=== PATIENT | female | born 1990 | race Caucasian/White ===

== ENCOUNTER 2017-02-28 17:36 | Inpatient (IN) | payer MEDICAID ==
[~2017-02-28] VITALS: Ht 157.5 cm; Wt 65.4 kg
[2017-02-28 17:48] VITALS: Ht 157.5 cm; Wt 65.4 kg
[2017-02-28 17:49] VITALS: BP 158/89; PULSE 88; RESP 18
[2017-02-28] MEDS ORDERED: FER325 PO (18:00)
[2017-02-28] MEDS ORDERED: FOLI0.4T2 PO (18:00)
[2017-02-28] MEDS ORDERED: PRENAT PO (18:00)
[2017-02-28 18:04] LABS: ADD SCAN DIFF NO
[2017-02-28 18:07] LABS: ABNORMAL IP MESSAGE 1; BASOPHILS % 0.2 % (0.0-2.0); EOSINOPHILS % 0.3 % (0.0-7.0); HEMOGLOBIN 12.5 g/dl (12.0-16.0); LYMPHOCYTES # 3.3 10^3/ul (0.8-2.9); LYMPHOCYTES % 30.6 % (15.0-51.0); MEAN CORPUSCULAR HEMOGLOBIN 24.3 pg (29.0-33.0); MEAN CORPUSCULAR HGB CONC 32.1 g/dl (32.0-37.0); MEAN CORPUSCULAR VOLUME 75.9 fl (82.0-101.0); MONOCYTE # 0.8 10^3/ul (0.3-0.9); MONOCYTES % 7.3 % (0.0-11.0); NEUTROPHIL # 6.5 10^3/ul (1.6-7.5); NEUTROPHILS % 61.2 % (39.0-77.0); NUCLEATED RED BLOOD CELLS% 0.3 /100WBC (0.0-0.0); PLATELET COUNT 142 10^3/UL (140-415); RED BLOOD COUNT 5.14 10^6/ul (4.20-5.40); RED CELL DISTRIBUTION WIDTH 13.8 % (11.5-14.5); WHITE BLOOD COUNT 10.7 10^3/ul (4.8-10.8)
[2017-02-28 18:09] LABS: ADD UMIC YES; UR BILIRUBIN (Dip) NEGATIVE (NEGATIVE); UR BLOOD (Dip) TRACE (NEGATIVE); UR CLARITY CLEAR (CLEAR); UR COLOR LT. YELLOW (YELLOW); UR GLUCOSE (Dip) NEGATIVE (NEGATIVE); UR KETONES (Dip) NEGATIVE (NEGATIVE); UR LEUKOCYTE ESTERASE (Dip) NEGATIVE (NEGATIVE); UR NITRITE (Dip) NEGATIVE (NEGATIVE); UR TOTAL PROTEIN (Dip) 1+ (NEGATIVE); UR UROBILINOGEN (Dip) 0.2 E.U./dL (0.1-1.0)
[2017-02-28 18:23] LABS: UR SQUAMOUS EPITHELIAL CELL FEW; URINE RBCS 0-2 /HPF (0)
--- NOTE | 2017-02-28 18:25 | RADRPT ---
PROCEDURE: Obstetrical ultrasound CLINICAL INDICATION: HIGH BLOOD PRESSURE TECHNIQUE: Multiple sonographic images of the pelvis were obtained. The images were reviewed on a PACS workstation. COMPARISON: None FINDINGS: The cervix is not well visualized. There is a single viable intrauterine gestation. Cardiac activity is present with 139 beats per minute. There is a vertex presentation. The placenta is anterior. There is no evidence for an abruption or placenta previa. Multiple venous lakes are identified. There is a normal amount of amniotic fluid with an ANIYAH = 9.4 cm. Measurements were made in order to determine age. The results are as follows (cm): BPD =9.33 HC =34.01 AC =33.91 FL =7.72 Estimated gestational age by ultrasound of approximately 38 weeks, 4 days. The estimated date of delivery by ultrasound is 03/10/2017. Estimated gestational age by LMP of approximately 39 weeks, 1 day. The estimated date of delivery by LMP is 03/06/2017. EFW = 3474 grams (51st percentile) IMPRESSION: Single viable intrauterine gestation of approximately 38 weeks, 4 days . The estimated date of delivery is 03/10/2017 . Dating by ultrasound is within 4 days of dating by LMP. Cephalic presentation. Estimated weight is in the 51st percentile. Normal ANIYAH. RPTAT: EE Physician Ovidio Date Time Electronically viewed and signed by Physician Ovidio on 02/28/2017 18:24 /
[2017-02-28 18:27] LABS: ALBUMIN 4.1 g/dl (3.3-4.9); ALBUMIN/GLOBULIN RATIO 1.32; BILIRUBIN,INDIRECT 0.5 mg/dl (0-1.1); BILIRUBIN,TOTAL 0.5 mg/dl (0.2-1.3); CALCIUM 9.3 mg/dl (8.4-10.2); CREATININE 0.78 mg/dl (0.44-1.00); POTASSIUM 3.9 mmol/L (3.5-5.1); TOTAL PROTEIN 7.2 g/dl (6.1-8.1); URIC ACID 6.4 mg/dl (3.1-7.9)
[2017-02-28] MEDS ORDERED: OXYTOCIN 30 UNITS/LR 500 ML IV PRN (20:00)
[2017-02-28] MEDS ORDERED: CARBOPROST 250 MCG INJ IM PRN (20:00)
[2017-02-28] MEDS ORDERED: MISOPROSTOL 200 MCG TAB PR PRN (20:00)
[2017-02-28] MEDS ORDERED: AMPICILLIN 2 GM/NS (PMX) 100 ML IV ONE (20:00)
[2017-02-28] MEDS ORDERED: LIDOCAINE 1% (MPF) 30 ML INJ INJ PRN (20:00)
[2017-02-28] MEDS ORDERED: BUTORPHANOL 2 MG INJ IV PRN ×2 (20:00)
[2017-02-28] MEDS ORDERED: ACETAMINOPHEN/CODEINE #3 TAB PO PRN (20:00)
[2017-02-28] MEDS ORDERED: OXYTOCIN 30 UNITS/LR 500 ML IV SCH ×2 (20:00)
[2017-02-28] MEDS ORDERED: METHYLERGONOVINE 0.2 MG INJ IM PRN (20:00)
[2017-02-28] MEDS ORDERED: IBUPROFEN 600 MG TAB PO PRN (20:00)
[2017-02-28] MEDS ORDERED: LACTATED RINGER'S 1,000 ML IV PRN (20:16)
[2017-02-28] MEDS: LACTATED RINGER'S 1,000 ML IV SCH (21:09)
[2017-02-28] MEDS: AMPICILLIN 1 GM/NS (PMX) 50 ML IV SCH (21:13)
[2017-02-28] MEDS: MISOPROSTOL 25 MCG CAPSULE PO SCH (21:20)
--- NOTE | 2017-02-28 21:54 | TRIAGE ---
OB Triage Datetime Report Generated by CPN: 02/28/2017 21:54 Datetime: 02/28/2017 21:00 Stage of : Labor Labor Evaluation Frequency: IRREG Monitor Mode: External Duration (sec)2399: 50-100 Quality: Mild Pattern: Normal: <= 5 Contractions in 10 Minutes Resting Tone [place]: Relaxed Heart Rate FHR Baseline Rate: 130 Monitor Mode: External US Variability: Minimal - Undetectable to <=5 bpm Accelerations: 10X10 Decelerations: None Category: Category I Pain Assessment Pain Presence: None/Denies Datetime: 02/28/2017 20:41 Assessment Type: Admission Assessment Vaginal Bleeding: None Maternal Assessment Level of Consciousness: Fully Conscious DTR's/Clonus: DTRs 2+; No Clonus Headache: Denies Blurred Vision: No Respiratory Effort: Unlabored; Regular Rhythm; Equal Expansion Breath Sounds, Left: Clear and Equal Breath Sounds, Right: Clear and Equal Nausea/Vomiting: Denies RUQ Epigastric Pain: Denies Lower Extremities Edema: Bilateral Lower Extremities Degree: 1+ Upper Extremities Edema: None Facial Edema: None Fall Risk Assessment History of Falling: (0) No Secondary Diagnosis: (0) No Ambulatory Aid: (0) Bedrest/Nurse Assist IV Therapy: (0) No Gait: (0) Normal/Bedrest/Immobile Mental Status: (0) Oriented to Own Ability Fall Score: 0 Fall Risk Score Definition: No Risk: No action required Pain Assessment Pain Presence: None/Denies Membrane Status: Intact Datetime: 02/28/2017 20:31 Membrane Status: Intact Datetime: 02/28/2017 20:01 Vaginal Exam Dilatation (cms): 0.0 Exam By: ADENIKE LORENA Datetime: 02/28/2017 19:17 Assessment Type: Triage Maternal Assessment Level of Consciousness: Fully Conscious DTR's/Clonus: DTRs 2+; No Clonus Headache: Denies Blurred Vision: No Respiratory Effort: Unlabored; Regular Rhythm; Equal Expansion Breath Sounds, Left: Clear and Equal Breath Sounds, Right: Clear and Equal Nausea/Vomiting: Denies RUQ Epigastric Pain: Denies Lower Extremities Edema: None Degree: None Upper Extremities Edema: None Degree: None Facial Edema: None Fall Risk Assessment History of Falling: (0) No Secondary Diagnosis: (0) No Ambulatory Aid: (0) Bedrest/Nurse Assist IV Therapy: (0) No Gait: (0) Normal/Bedrest/Immobile Mental Status: (0) Oriented to Own Ability Fall Score: 0 Fall Risk Score Definition: No Risk: No action required Datetime: 02/28/2017 18:50 Labor Evaluation Frequency: NONE Monitor Mode: External Pattern: Normal: <= 5 Contractions in 10 Minutes Resting Tone [place]: Relaxed Heart Rate FHR Baseline Rate: 140 Monitor Mode: External US FHR Baseline Changes: No Baseline Change Variability: Moderate 6-25 bpm Accelerations: 15X15 Decelerations: None Category: Category I Datetime: 02/28/2017 18:12 Labor Evaluation Frequency: OCCASIONAL Monitor Mode: External Duration (sec)2399: 70-110 Quality: Mild Pattern: Normal: <= 5 Contractions in 10 Minutes Resting Tone [place]: Relaxed Contraction Comments: PT DENIES FEELING THEM Heart Rate FHR Baseline Rate: 130 Monitor Mode: External US FHR Baseline Changes: No Baseline Change Variability: Moderate 6-25 bpm Accelerations: 15X15 Decelerations: None Category: Category I Datetime: 02/28/2017 17:56 Comments: U/S AT BED SIDE Datetime: 02/28/2017 17:55 Assessment Type: Triage Time of Arrival: 02/28/2017 20:00 EGA: 39.1 Arrived By: Stretcher Maternal Assessment Level of Consciousness: Fully Conscious DTR's/Clonus: DTRs 2+; No Clonus Headache: Denies Blurred Vision: No Respiratory Effort: Unlabored; Regular Rhythm; Equal Expansion Breath Sounds, Left: Clear and Equal Breath Sounds, Right: Clear and Equal Nausea/Vomiting: Denies RUQ Epigastric Pain: Denies Lower Extremities Edema: None Degree: None Upper Extremities Edema: None Degree: None Facial Edema: None Fall Risk Assessment History of Falling: (0) No Secondary Diagnosis: (0) No Ambulatory Aid: (0) Bedrest/Nurse Assist IV Therapy: (0) No Gait: (0) Normal/Bedrest/Immobile Mental Status: (0) Oriented to Own Ability Fall Score: 0 Fall Risk Score Definition: No Risk: No action required Presentation 'A': Cephalic Datetime: 02/28/2017 17:53 Time of Arrival: 02/28/2017 17:54 Arrived By: Ambulatory Arrived From: Office Chief Complaint: ELEVATED BP Movement: Present Rupture of Membranes: Denies Vaginal Discharge: Denies Recent Sexual Intercouse: Denies Abdominal Trauma: Not Applicable Provider Notified: DELSHAD Initial Plan: NST. Datetime: 02/28/2017 17:52 Maternal Assessment Level of Consciousness: Fully Conscious DTR's/Clonus: DTRs 2+ Headache: Denies Blurred Vision: No Nausea/Vomiting: Denies RUQ Epigastric Pain: Denies Facial Edema: None
[2017-02-28 22:32] LABS: INR 0.94; PROTIME 12.6 Sec (12.2-14.2)
[2017-02-28 22:33] LABS: PARTIAL THROMBOPLASTIN TIME 29.8 Sec (25.0-35.0)
[2017-03-01] MEDS: MISOPROSTOL 25 MCG CAPSULE PO SCH ×6 (01:31→21:00)
[2017-03-01] MEDS: AMPICILLIN 1 GM/NS (PMX) 50 ML IV SCH (04:00)
[2017-03-01] MEDS: LACTATED RINGER'S 1,000 ML IV SCH ×3 (04:02→20:38)
[2017-03-01] MEDS ORDERED: LACTATED RINGER'S 1,000 ML IV ONE (08:57)
[2017-03-01] MEDS ORDERED: DIPHENHYDRAMINE 50 MG INJ IV PRN (09:00)
[2017-03-01] MEDS ORDERED: KETOROLAC 30 MG INJ IV PRN (09:00)
[2017-03-01] MEDS ORDERED: PROCHLORPERAZINE 10 MG INJ IV PRN (09:00)
[2017-03-01] MEDS ORDERED: NALOXONE (0.4 MG/ML) INJ IV PRN (09:00)
[2017-03-01] MEDS ORDERED: CITRIC ACID/SODIUM CITRATE 15 ML CUP PO ONE (09:00)
[2017-03-01] MEDS ORDERED: ONDANSETRON 4 MG INJ IV PRN (09:00)
[2017-03-01] MEDS ORDERED: morphine 2 MG INJ IV PRN ×2 (09:00)
[2017-03-01] MEDS ORDERED: ONDANSETRON 4 MG INJ IV ONE (09:00)
[2017-03-01] MEDS: FENTAnyl 2MCG/ML-ROPIV 0.2% 100 ML BAG EPI SCH ×2 (17:22→23:59)
--- NOTE | 2017-03-01 20:08 | HP ---
Date/Time of Note Date/Time of Note DATE: 03/01/17 TIME: 20:06 OB - History Hx of Present Chief Complaint: Refered from clinic due to proteinuria Estimated Due Date: Mar 06, 2017 : 1 Para: 0 Spontaneous : 0 Therapeutic : 0 Care: Good Care Ultrasounds: Normal mid trimester US Obstetrical Complications: Pre-eclampsia Medical Complications: None Past Family/Social History * Past Medical, Surgical, Family and Obstetric Histories reviewed from chart. GBS Status: Negative OB Admission Exam Vital Signs Vital Signs Vital Signs Date Time Temp Pulse Resp B/P Pulse Ox O2 Delivery O2 Flow Rate FiO2 02/28/17 17:49 98.8 88 18 158/89 Room Air Physical Exam HEENT: WNL Heart: Rhythm Normal Lungs: Clear Abdomen: WNL Extremities: Normal Reflexes: Normal Cervical Dilatation: Fingertip Effacement: 50% Station: -1 Membranes: Intact Heart Rate: 120's Accelerations: Accelerations Present Decelerations: No Decelerations Varibility: Moderate Last 72 hours Lab Results CBC & BMP 02/28/17 17:55 Liver Function Test 02/28/17 17:55 Alanine Aminotransferase (ALT/SGPT) 35 Albumin 4.1 Alkaline Phosphatase 324 H Aspartate Amino Transf (AST/SGOT) 36 Direct Bilirubin 0.00 Total Protein 7.2 OB Assessment/Plan Reason for admission: induction of labor Plan: Induction Induction Method: per Misoprostol Protocol ETELVINA REYNOSO MD Mar 01, 2017 20:08
[2017-03-01 21:44] LABS: ADD SCAN DIFF NO
[2017-03-01 21:45] LABS: ABNORMAL IP MESSAGE 1; BASOPHILS % 0.2 % (0.0-2.0); HEMATOCRIT 38.8 % (37.0-47.0); HEMOGLOBIN 12.5 g/dl (12.0-16.0); LYMPHOCYTES # 1.2 10^3/ul (0.8-2.9); LYMPHOCYTES % 10.4 % (15.0-51.0); MEAN CORPUSCULAR HEMOGLOBIN 24.7 pg (29.0-33.0); MEAN CORPUSCULAR HGB CONC 32.2 g/dl (32.0-37.0); MEAN CORPUSCULAR VOLUME 76.5 fl (82.0-101.0); MONOCYTE # 0.7 10^3/ul (0.3-0.9); MONOCYTES % 6.6 % (0.0-11.0); NEUTROPHIL # 9.2 10^3/ul (1.6-7.5); NEUTROPHILS % 82.4 % (39.0-77.0); PLATELET COUNT 138 10^3/UL (140-415); RED BLOOD COUNT 5.07 10^6/ul (4.20-5.40); RED CELL DISTRIBUTION WIDTH 13.9 % (11.5-14.5); WHITE BLOOD COUNT 11.2 10^3/ul (4.8-10.8)
[2017-03-01 21:46] LABS: ADD UMIC YES; UR BILIRUBIN (Dip) NEGATIVE (NEGATIVE); UR BLOOD (Dip) 3+ (NEGATIVE); UR CLARITY CLEAR (CLEAR); UR COLOR LT. YELLOW (YELLOW); UR GLUCOSE (Dip) NEGATIVE (NEGATIVE); UR KETONES (Dip) 15 (NEGATIVE); UR LEUKOCYTE ESTERASE (Dip) TRACE (NEGATIVE); UR NITRITE (Dip) NEGATIVE (NEGATIVE); UR TOTAL PROTEIN (Dip) 1+ (NEGATIVE); UR UROBILINOGEN (Dip) 0.2 E.U./dL (0.1-1.0)
[2017-03-01 21:51] LABS: URINE RBCS >200 /HPF (0)
[2017-03-01 22:12] LABS: ALBUMIN 3.6 g/dl (3.3-4.9); ALBUMIN/GLOBULIN RATIO 1.16; BILIRUBIN,INDIRECT 0.7 mg/dl (0-1.1); BILIRUBIN,TOTAL 0.7 mg/dl (0.2-1.3); CALCIUM 8.9 mg/dl (8.4-10.2); CREATININE 0.84 mg/dl (0.44-1.00); POTASSIUM 3.9 mmol/L (3.5-5.1); TOTAL PROTEIN 6.7 g/dl (6.1-8.1)
[2017-03-01] MEDS ORDERED: ACETAMINOPHEN 500 MG TAB PO PRN (23:00)
[2017-03-01] MEDS ORDERED: DEXTROSE 5%-LR 1,000 ML IV PRN (23:00)
[2017-03-02] MEDS: LACTATED RINGER'S 1,000 ML IV SCH ×6 (02:49→21:40)
[2017-03-02] MEDS ORDERED: CHLOROPROCAINE 3% (MPF) 20 ML INJ ONE (03:54)
[2017-03-02] MEDS ORDERED: CEFAZOLIN 2 GM/50 ML (PMX) 50 ML IVPB ONE (04:01)
[2017-03-02] MEDS ORDERED: SUCCINYLCHOLINE CHLORIDE 100 MG/5 ML SYG IV ONE (04:17)
[2017-03-02] MEDS ORDERED: PROPOFOL 20 ML ONE (04:17)
[2017-03-02] MEDS ORDERED: CEFAZOLIN 1 GM INJ ONE (04:17)
[2017-03-02] MEDS ORDERED: DEXAMETHASONE 4 MG/ML 1 ML INJ ONE (04:18)
[2017-03-02] MEDS ORDERED: METOCLOPRAMIDE 10 MG INJ ONE (04:18)
[2017-03-02] MEDS ORDERED: PHENYLephrine (100 MCG/ML) 5ML SYG ONE (04:19)
[2017-03-02] MEDS ORDERED: FENTAnyl 50 MCG/ML VIAL ONE (04:27)
[2017-03-02] MEDS ORDERED: MIDAZOLAM 1 MG/ML 2 ML INJ ONE (04:31)
[2017-03-02 04:33] LABS: CBV Base Excess -0.9 mmol/L; CBV COHb 1.1 %; CBV Oxygen Sat 55.4 mmHG; CBV Total Hemglobin 15.4 g/dl; Cord Blood Venous pO2 24.6 mmHG (15.0-45.0); Fraction OxyHgb Cord Venous 53.9 %; MODE ROOM AIR; MetHgb Cord Venous 1.6 %; Sample Type CBV
[2017-03-02 04:34] LABS: AADO2 Cord Arterial 65.2 mmHg; Arterial Cord Blood pCO2 58.2 mmHG (25-50); CBA Base Excess -1.6 mmol/L; CBA Oxygen Sat 28.4 mmHG; CBA Total Hemglobin 15.4 g/dl; Cord Blood Arterial pO2 14.8 mmHG (15.0-45.0); Fraction OxyHgb Cord Arterial 27.8 %; MODE ROOM AIR; MetHgb Cord Arterial 2.1 %; Sample Type CBA
--- NOTE | 2017-03-02 04:46 | PN ---
Date/Time of Note Date/Time of Note DATE: 03/02/17 TIME: 03:50 OB Subjective Subjective Subjective patient resting comfortably with epidural. I was called by RN to evaluate FHT, as her physician, Dr. Salas could not be reached. FHT had minimal variability and some occasional decels. Per chart review and nursing report, patient had been admitted from clinic for mild pre-eclampsia and plan was for IOL with cytotec. Her last dose of cytotec was at 1 pm. Patient has had BP's ranging 120's-150's/8's-90's. She was not started on pitocin, but was jj every 4 min since the last dose of cytotec. When I went in to evaluate the FHT the baseline was 150's, with minimal variability and no accels, Cat II FHT. I AROM'd, and there was thick meconium. IUPC and IFM placed; amnioinfusion started. Patient started to have a prolonged decel, Dr. Salas again could not be reached. Patient advised emergent c/d was necessary. Backup physician called in and patient brought to OR for stat c/d. MIGUELITO NINA MD Mar 02, 2017 04:46
--- NOTE | 2017-03-02 04:54 | OPR ---
Operative Report Planned Procedure Procedure date Mar 02, 2017 Procedure(s) Primary c/d Performed by: MIGUELITO NINA MD Assisting provider: JAGDEEP MEYERS M.D. Pre-procedure diagnosis Non-reassuring heart tracing Anesthesia Type: general Procedure Description Under epidural anesthesia, the patient was prepped and draped and placed in a supine position, tilted to the left. Pfannenstiel incision was made, carried through the subcutaneous tissue. Patient noted to have pain and anesthesia converted to general. Fascia incised to the length of the incision. Rectus muscles from the fascia, divided midline. Peritoneum exposed, entered bluntly. Exploration of abdomen revealed gravid uterus. Bladder flap was developed. Transverse incision was made in the lower segment of the uterus. Fetus was delivered, male, 6, 9, weight 6lbs, 11oz. The baby was handed to the team for immediate attention. The placenta was delivered manually intact. Uterine cavity was cleaned with wet sponge and drainage established. Uterus closed in 2 layers using 0 vicryl in continuous fashion. Peritoneal cavity irrigated with warm saline. Sponge, needle and instrument count reported to be correct. Abdominal peritoneum closed with 2 vicryl continuously. Rectus muscle approximated with 3 vicryl. Fascia closed with 0 vicryl and skin closed with monocroly on a Lion needle. Estimated blood loss 600mL. Post-Procedure Findings: Live Baby [boy], Apgars [6] and [9], weight [6lbs 11oz], presentation [vtx] Complications: None Pt Condition post procedure: stable Disposition: PACU Physician Certification I, the undersigned physician, hereby certify that I have discussed the procedure described in this consent form with this patient (or the patient's legal merchandiser retail representative), including: * The risk and benefits of the procedure; * Any adverse reactions that may reasonably be expected to occur; * Any alternative efficacious methods of treatment which may be medically viable ; * The potential problems that may occur during recuperation; * Potential for blood transfusion and associated risks/benefits; and * Any research or economic interest I may have regarding this treatment. I further certify that the patient/legally responsible person was encouraged to ask question and that all questions were answered. MIGUELITO NINA MD Mar 02, 2017 04:54
[2017-03-02] MEDS ORDERED: CEFAZOLIN 1 GM/50 ML (PMX) 50 ML IV ONE (05:00)
[2017-03-02] MEDS ORDERED: OXYTOCIN 30 UNITS/LR 500 ML IV PRN (05:00)
[2017-03-02] MEDS ORDERED: LANOLIN 7 GM TUBE TOP PRN (05:00)
[2017-03-02] MEDS ORDERED: MISOPROSTOL 200 MCG TAB PR PRN (05:00)
[2017-03-02] MEDS ORDERED: ACETAMINOPHEN/CODEINE #3 TAB PO PRN ×2 (05:00)
[2017-03-02] MEDS ORDERED: CARBOPROST 250 MCG INJ IM PRN (05:00)
[2017-03-02] MEDS: KETOROLAC 30 MG INJ IV PRN ×2 (05:25→23:40)
[2017-03-02] MEDS ORDERED: DIPHENHYDRAMINE 50 MG INJ IV PRN (05:30)
[2017-03-02] MEDS ORDERED: TRIMETHOBENZAMIDE 100 MG/ML VIAL IM PRN (05:30)
[2017-03-02] MEDS ORDERED: ONDANSETRON 4 MG INJ IV PRN (05:30)
[2017-03-02] MEDS ORDERED: ACETAMINOPHEN 1000MG/100ML IV 100 ML IVPB PRN (05:30)
[2017-03-02] MEDS ORDERED: HYDROmorphONE 1 MG/ML SYG IV PRN ×2 (05:30)
[2017-03-02] MEDS ORDERED: HYDROmorphONE 0.2 MG/ML PCA IV SCH (05:30)
[2017-03-02] MEDS ORDERED: NALOXONE (0.4 MG/ML) INJ IV PRN (05:30)
[2017-03-02] MEDS ORDERED: OXYCODONE/ACETAMINOPHEN (5/325) TAB PO PRN (05:30)
[2017-03-02] MEDS: OXYTOCIN 30 UNITS/LR 500 ML IV SCH ×2 (05:36→09:49)
[2017-03-02] MEDS: IBUPROFEN 600 MG TAB PO SCH ×3 (06:00→17:25)
--- NOTE | 2017-03-02 06:15 | OPPN ---
Date/Time of Note Date/Time of Note DATE: 03/02/17 TIME: 06:13 Anesthesia Follow up Anesthesia Follow up Last documented vital signs Vital Signs Date Time Temp Pulse Resp B/P Pulse Ox O2 Delivery O2 Flow Rate FiO2 02/28/17 17:49 98.8 88 18 158/89 Room Air Respiratory function: WNL Cardiovascular function: WNL Comments Pt is POD 0 s/p emergent c/s for nonreassuring FHT under GETA. Pt is VSS, A&Ox3 , maintaining SpO2 on FM O2, no n/v, pain controlled with SERVICE CENTER ASSISTANT. Baby is doing well, at bedside with father skin to skin. Recommend no for 24h, may start 03/03/17 5am. Titrate down SERVICE CENTER ASSISTANT as tolerated. CARROLL ZAMUDIO MD Mar 02, 2017 06:15
[2017-03-02] MEDS ORDERED: OXYTOCIN 30 UNITS/LR 500 ML BAG IV ONE (07:00)
[2017-03-02 08:40] VITALS: BP 160/83; PULSE 62; RESP 18
[2017-03-02 09:40] VITALS: BP 132/82; PULSE 67; RESP 18
[2017-03-02 11:33] LABS: ADD SCAN DIFF NO
[2017-03-02 11:35] LABS: ABNORMAL IP MESSAGE 1; BASOPHILS % 0.2 % (0.0-2.0); HEMATOCRIT 36.3 % (37.0-47.0); HEMOGLOBIN 11.7 g/dl (12.0-16.0); LYMPHOCYTES # 0.9 10^3/ul (0.8-2.9); LYMPHOCYTES % 4.4 % (15.0-51.0); MEAN CORPUSCULAR HEMOGLOBIN 24.6 pg (29.0-33.0); MEAN CORPUSCULAR HGB CONC 32.2 g/dl (32.0-37.0); MEAN CORPUSCULAR VOLUME 76.3 fl (82.0-101.0); NEUTROPHIL # 17.6 10^3/ul (1.6-7.5); NEUTROPHILS % 89.9 % (39.0-77.0); PLATELET COUNT 136 10^3/UL (140-415); RED BLOOD COUNT 4.76 10^6/ul (4.20-5.40); RED CELL DISTRIBUTION WIDTH 13.9 % (11.5-14.5); WHITE BLOOD COUNT 19.5 10^3/ul (4.8-10.8)
[2017-03-02 12:00] VITALS: BP 140/77; PULSE 63; RESP 18
[2017-03-02 15:50] VITALS: BP 123/70; PULSE 85; RESP 18
[2017-03-02 20:05] VITALS: BP 129/76; PULSE 99; RESP 19
[2017-03-03] VITALS: BP 145/88; PULSE 84; RESP 18
[2017-03-03 04:00] VITALS: BP 127/79; PULSE 62; RESP 19
[2017-03-03] MEDS: IBUPROFEN 600 MG TAB PO SCH ×5 (05:32→23:36)
[2017-03-03] MEDS: LACTATED RINGER'S 1,000 ML IV SCH ×2 (06:10)
[2017-03-03 07:13] LABS: ADD SCAN DIFF NO
[2017-03-03 07:15] LABS: BASOPHILS % 0.2 % (0.0-2.0); EOSINOPHILS % 0.2 % (0.0-7.0); HEMATOCRIT 31.5 % (37.0-47.0); HEMOGLOBIN 10.3 g/dl (12.0-16.0); LYMPHOCYTES % 14.1 % (15.0-51.0); MEAN CORPUSCULAR HEMOGLOBIN 24.7 pg (29.0-33.0); MEAN CORPUSCULAR HGB CONC 32.7 g/dl (32.0-37.0); MEAN CORPUSCULAR VOLUME 75.5 fl (82.0-101.0); MONOCYTE # 0.7 10^3/ul (0.3-0.9); MONOCYTES % 5.2 % (0.0-11.0); NEUTROPHIL # 11.4 10^3/ul (1.6-7.5); NEUTROPHILS % 79.7 % (39.0-77.0); PLATELET COUNT 130 10^3/UL (140-415); RED BLOOD COUNT 4.17 10^6/ul (4.20-5.40); RED CELL DISTRIBUTION WIDTH 13.9 % (11.5-14.5); WHITE BLOOD COUNT 14.3 10^3/ul (4.8-10.8)
[2017-03-03 08:00] VITALS: BP 127/76; PULSE 69; RESP 18
[2017-03-03] MEDS: OXYCODONE/ACETAMINOPHEN (5/325) TAB PO PRN (10:45)
[2017-03-03 15:03] VITALS: BP 130/76; PULSE 59; RESP 19
--- NOTE | 2017-03-03 18:45 | QN ---
Documentation Comment No complaint Afebrile VSS Abdomen soft POD #1 Stable Ambulate Advance diet. ETELVINA REYNOSO MD Mar 03, 2017 18:45
[2017-03-03 20:00] VITALS: BP 138/86; PULSE 70; RESP 20
[2017-03-04 04:00] VITALS: BP 128/74; PULSE 73; RESP 20
[2017-03-04] MEDS: IBUPROFEN 600 MG TAB PO SCH ×3 (05:33→17:29)
[2017-03-04 08:00] VITALS: BP 136/62; PULSE 79; RESP 18
[2017-03-04] MEDS: SENNA TAB PO PRN ×2 (09:55→20:55)
[2017-03-04] MEDS: MAGNESIUM HYDROXIDE 30ML CUP PO SCH ×2 (09:55→20:55)
[2017-03-04 16:40] VITALS: BP 132/86; PULSE 74; RESP 18
[2017-03-04] MEDS: BISACODYL 10 MG SUPP PR PRN (17:10)
--- NOTE | 2017-03-04 18:49 | QN ---
Documentation Comment No complaint Afebrile VSS Abdomen soft POD #2 Stable Continue present care. ETELVINA REYNOSO MD Mar 04, 2017 18:49
[2017-03-04 20:00] VITALS: BP 113/76; PULSE 76; RESP 19
[2017-03-05 04:00] VITALS: BP 124/85; PULSE 70; RESP 19
[2017-03-05] MEDS: IBUPROFEN 600 MG TAB PO SCH ×5 (05:50→23:53)
[2017-03-05 07:30] VITALS: BP 106/64; PULSE 71; RESP 19
[2017-03-05] MEDS: MAGNESIUM HYDROXIDE 30ML CUP PO SCH ×2 (09:47→21:00)
[2017-03-05] MEDS: BISACODYL 10 MG SUPP PR PRN (13:52)
[2017-03-05 16:08] VITALS: BP 120/72; PULSE 67; RESP 19
[2017-03-05 20:15] VITALS: BP 140/85; PULSE 92; RESP 18
--- NOTE | 2017-03-05 20:53 | QN ---
Documentation Comment c/o gas discomfort. No other complaint. +BM Afebrile VSS Abdomen slightly distended POD #3 Stable Continue with present care. ETELVINA REYNOSO MD Mar 05, 2017 20:53
[2017-03-05 23:30] VITALS: BP 133/85; PULSE 84; RESP 19
[2017-03-06 03:45] VITALS: BP 124/83; PULSE 72; RESP 18
[2017-03-06] MEDS: IBUPROFEN 600 MG TAB PO SCH ×4 (05:41→23:41)
[2017-03-06 08:00] VITALS: BP 131/73; PULSE 78; RESP 19
--- NOTE | 2017-03-06 08:16 | QN ---
Documentation Comment c/o gas discomfort. Afebrile VSS Abdomen soft distended R/O ileus NPO IV hydration Labs ETELVINA REYNOSO MD Mar 06, 2017 08:16
[2017-03-06] MEDS: DEXTROSE 5%-LR 1,000 ML IV SCH ×3 (08:30→21:50)
[2017-03-06] MEDS: MAGNESIUM HYDROXIDE 30ML CUP PO SCH ×2 (08:48→21:00)
[2017-03-06 10:16] LABS: ADD SCAN DIFF NO
[2017-03-06 10:32] LABS: BASOPHILS % 0.2 % (0.0-2.0); EOSINOPHILS # 0.2 10^3/ul (0.0-0.5); EOSINOPHILS % 1.4 % (0.0-7.0); HEMATOCRIT 30.2 % (37.0-47.0); HEMOGLOBIN 9.8 g/dl (12.0-16.0); LYMPHOCYTES # 1.6 10^3/ul (0.8-2.9); LYMPHOCYTES % 15.1 % (15.0-51.0); MEAN CORPUSCULAR HEMOGLOBIN 24.4 pg (29.0-33.0); MEAN CORPUSCULAR HGB CONC 32.5 g/dl (32.0-37.0); MEAN CORPUSCULAR VOLUME 75.3 fl (82.0-101.0); MEAN PLATELET VOLUME 10.8 fl (7.4-10.4); MONOCYTE # 0.6 10^3/ul (0.3-0.9); MONOCYTES % 5.4 % (0.0-11.0); NEUTROPHIL # 8.3 10^3/ul (1.6-7.5); NEUTROPHILS % 77.5 % (39.0-77.0); PLATELET COUNT 252 10^3/UL (140-415); RED BLOOD COUNT 4.01 10^6/ul (4.20-5.40); RED CELL DISTRIBUTION WIDTH 13.4 % (11.5-14.5); WHITE BLOOD COUNT 10.8 10^3/ul (4.8-10.8)
[2017-03-06 10:40] LABS: ALBUMIN 3.2 g/dl (3.3-4.9); ALBUMIN/GLOBULIN RATIO 1.14; BILIRUBIN,INDIRECT 0.4 mg/dl (0-1.1); BILIRUBIN,TOTAL 0.4 mg/dl (0.2-1.3); CALCIUM 8.5 mg/dl (8.4-10.2); CREATININE 0.7 mg/dl (0.44-1.00); POTASSIUM 3.8 mmol/L (3.5-5.1)
[2017-03-06] MEDS: OXYCODONE/ACETAMINOPHEN (5/325) TAB PO PRN (12:37)
[2017-03-06] MEDS ORDERED: LACTATED RINGER'S 1,000 ML IV ONE ×2 (13:30→20:00)
[2017-03-06] MEDS ORDERED: morphine 4 MG/ML VIAL IV PRN (13:30)
[2017-03-06 16:00] VITALS: BP 130/80; PULSE 74
[2017-03-06 20:10] VITALS: BP 135/76; PULSE 87; RESP 18
--- NOTE | 2017-03-06 20:30 | RADRPT ---
PROCEDURE: XR Abdomen. CLINICAL INDICATION: Ileus TECHNIQUE: AP abdomen x-ray. COMPARISON: There are no similar studies submitted for comparison. FINDINGS: Some gas-filled loops of large and small bowel are noted throughout the abdomen, without abnormal di stension. There is no evidence of bowel obstruction.There are no definite densities overlying the k idneys and ureters. IMPRESSION: Possible mild ileus or bowel gas pattern within normal limits. RPTAT: HIKT .Oswald Rapp MD, MD Date Time Electronically viewed and signed by .Oswald Rapp MD, MD on 03/06/2017 20:30 .T/
[2017-03-07 04:09] VITALS: BP 123/73; PULSE 80; RESP 18
[2017-03-07] MEDS: IBUPROFEN 600 MG TAB PO SCH ×3 (06:00→18:28)
[2017-03-07] MEDS: DEXTROSE 5%-LR 1,000 ML IV SCH ×2 (06:27→13:14)
[2017-03-07 08:07] VITALS: BP 143/82; PULSE 79; RESP 18
[2017-03-07 08:10] LABS: ADD SCAN DIFF NO
[2017-03-07 08:14] LABS: BASOPHILS % 0.2 % (0.0-2.0); EOSINOPHILS # 0.1 10^3/ul (0.0-0.5); EOSINOPHILS % 1.2 % (0.0-7.0); HEMATOCRIT 29.3 % (37.0-47.0); HEMOGLOBIN 9.5 g/dl (12.0-16.0); LYMPHOCYTES # 2.4 10^3/ul (0.8-2.9); LYMPHOCYTES % 19.9 % (15.0-51.0); MEAN CORPUSCULAR HEMOGLOBIN 24.4 pg (29.0-33.0); MEAN CORPUSCULAR HGB CONC 32.4 g/dl (32.0-37.0); MEAN CORPUSCULAR VOLUME 75.1 fl (82.0-101.0); MEAN PLATELET VOLUME 10.9 fl (7.4-10.4); MONOCYTE # 0.9 10^3/ul (0.3-0.9); MONOCYTES % 7.6 % (0.0-11.0); NEUTROPHIL # 8.5 10^3/ul (1.6-7.5); NEUTROPHILS % 70.5 % (39.0-77.0); PLATELET COUNT 273 10^3/UL (140-415); RED CELL DISTRIBUTION WIDTH 13.5 % (11.5-14.5)
[2017-03-07] MEDS: MAGNESIUM HYDROXIDE 30ML CUP PO SCH (08:28)
[2017-03-07 09:17] LABS: ALBUMIN 2.8 g/dl (3.3-4.9); ALBUMIN/GLOBULIN RATIO 1.12; BILIRUBIN,INDIRECT 0.3 mg/dl (0-1.1); BILIRUBIN,TOTAL 0.3 mg/dl (0.2-1.3); CALCIUM 8.3 mg/dl (8.4-10.2); CREATININE 0.66 mg/dl (0.44-1.00); MAGNESIUM 1.8 mg/dl (1.7-2.5); POTASSIUM 3.6 mmol/L (3.5-5.1); TOTAL PROTEIN 5.3 g/dl (6.1-8.1)
[2017-03-07] MEDS ORDERED: BISACODYL 10 MG SUPP PR ONE (16:30)
--- NOTE | 2017-03-07 18:10 | DS ---
Date/Time of Note Date/Time of Note DATE: 03/07/17 TIME: 18:08 Obstetrical Discharge Record Final Diagnosis Final Diagnosis: Term delivered Other Final Diagnosis Status post primary for nonreassuring heart tracing Patient stable and afebrile Patient discharged home today Patient was given prescription for pain meds Instructed to follow-up with primary HEAT ENGINEERING TEACHER in 2-3 days for incision check Section Section: Primary Condition on Discharge Physical Assessment Voiding: Yes Bowel Movement: Yes Breast: Soft, non-tender Fundus: Firm Abdomen and Incision: Incision clean dry intact Calf Tenderness: No Patient Condition: Good Copies To: CC: ETELVINA REYNOSO MD, BAHAREH MD Mar 07, 2017 18:10
== END 2017-03-07 18:40 | disposition home or self-care (01) | DRG 766 ==
LOC: OBT 17:36 → L-D 17:37 → OBT 20:00 → L-D 20:00 → PP1 03-02 08:51
PROVIDERS: ADMIT Obstetrics & Gynecology; ATTEND Obstetrics & Gynecology
PROC: 10D00Z1 Extraction of Products of Conception, Low, Open Approach (ICD-10-PCS; principal; 2017-03-02 04:00)
DX: O76 Abnormality in fetal heart rate and rhythm complicating labor and delivery (principal); O14.94 Unspecified pre-eclampsia, complicating childbirth; Z3A.39 39 weeks gestation of pregnancy; Z37.0 Single live birth
CPT/HCPCS: 36415; 36600; 74000; 76815; 80053; 81001; 82150; 82803; 83690; 83735; 84560; 85025; 85610; 85730; 86592; 86762; 86900; 86901; 87086; 87340; 88307; 94760; 99464; J2400; G0463; J0131; J0690; J1100; J1170; J1885; J2250; J2270; J2370; J2405; J2590; J2765; J3010; J7120; J7121; J7999